=== PATIENT | female | born 1980 | race American Indian/Alaskan Native ===

== ENCOUNTER 2020-09-16 14:40 | Emergency (ER) | payer MEDICAID, OTHER ==
[~2020-09-16] VITALS: Ht 157.5 cm; Wt 81.6 kg
[2020-09-16 14:43] VITALS: BP 135/96
== END 2020-09-16 16:53 | disposition home or self-care (01) ==
LOC: ER 14:40
DX: G51.0 Bell's palsy (principal); K04.7 Periapical abscess without sinus
CPT/HCPCS: 70450